=== PATIENT | female | born 1980 | race Two or more races ===

== ENCOUNTER 2018-06-20 01:33 | Emergency (ER) | payer MEDICAID ==
[~2018-06-20] VITALS: Ht 162.6 cm; Wt 52.2 kg
[2018-06-20 01:59] VITALS: BP 99/59
[2018-06-20] MEDS ORDERED: ONDANSETRON 4 MG TAB.RAPDIS SL ONE (02:30)
[2018-06-20] MEDS ORDERED: HYDROCODONE/APAP 5/325MG 1 EACH TABLET PO ONE (02:30)
[2018-06-20] MEDS ORDERED: ONDANSETRON 4 MG TAB.RAPDIS ONE (02:31)
[2018-06-20] MEDS ORDERED: HYDROCODONE/APAP 5/325MG 1 EACH TABLET ONE (02:31)
[2018-06-20 03:21] LABS: APPEARANCE,URINE SL CLOUDY (CLEAR); BILIRUBIN,URINE NEGATIVE (NEGATIVE); BLOOD, URINE 1+ Ery/uL (NEGATIVE); COLOR,URINE YELLOW (YELLOW); KETONES,URINE NEGATIVE (NEGATIVE); LEUKOCYTE ESTERASE ,URINE 2+ (NEGATIVE); NITRITE, URINE POSITIVE (NEGATIVE); PROTEIN,URINE NEGATIVE (NEGATIVE); UGLUCOSE NEGATIVE (NEGATIVE)
[2018-06-20 03:48] LABS: BACTERIA,URINE Many /HPF (None Seen); SQUAMOUS EPITHELIAL CELL,UR Few /HPF (None Seen); WBC,URINE 81-100 /HPF (0-3)
[2018-06-20] MEDS ORDERED: SULFAMETH/TRIMETH 800/160 MG 1 UDTAB TABLET PO ONE ×2 (03:50→04:00)
== END 2018-06-20 03:57 | disposition home or self-care (01) ==
LOC: ER 01:36
DX: M54.42 Lumbago with sciatica, left side (principal); G89.29 Other chronic pain; Z98.890 Other specified postprocedural states; Z60.2 Problems related to living alone
CPT/HCPCS: 81000-TC; 84703-TC; 87086-TC; 87186-TC; A4606; Q0162; Z7610